=== PATIENT | female | born 1990 | race Caucasian/White ===

== ENCOUNTER 2017-01-06 14:34 | Emergency (ER) | payer OTHER ==
[~2017-01-06] VITALS: Ht 165.1 cm; Wt 103.8 kg
[2017-01-06 15:29] LABS: HEMATOCRIT 43.5 % (36.0-46.0); MCH 28.9 PG (29.0-34.0); MCHC 32.6 G/DL (30.0-36.0); MCV 88.6 FL (83-99); MEAN PLAT.VOLUME 8.9 uM^3 (9.5-12.4); PLATELET COUNT 352 K/uL (156-360); RBC DIS.WIDTH-CV 12.7 % (11.8-14.6); RBC DIS.WIDTH-SD 41.6 % (39-53); RED BLOOD COUNT 4.91 M/uL (3.80-5.20); WHITE BLOOD COUNT 11.2 K/uL (4.1-10.2)
[2017-01-06] MEDS ORDERED: PRENATAL TABLE1 EAC3 PO (15:56)
[2017-01-06 16:15] LABS: ADD MIUA? YES; BILIRUBIN NEGATIVE; BLOOD MODERATE; COLOR YELLOW ((YELLOW)); GLUCOSE (STRIP) NEGATIVE; KETONES 20; LEUKOCYTES LARGE; NITRITE NEGATIVE; PROTEIN (STRIP) 30; UROBILINOGEN 0.2 MG/DL (0.2-1.0)
[2017-01-06 16:18] LABS: BACTERIA RARE /HPF; EPITHELIAL CELLS 1+ /HPF; MUCUS NONE SEEN /LPF; RED BLOOD CELLS 15-20 /HPF (0-5); UCUL ADDED? NO; WHITE BLOOD CELLS 20-30 /HPF (0-5)
[2017-01-06] MEDS ORDERED: KEFLEX500 MG PO (18:40)
[2017-01-06] MEDS ORDERED: METOPROLOL TART50 MG PO (18:43)
[2017-01-06 19:13] VITALS: BP 159/75
== END 2017-01-06 19:14 | disposition home or self-care (01) ==
LOC: EME 14:34
DX: O20.0 Threatened abortion (principal); O16.1 Unspecified maternal hypertension, first trimester; I10 Essential (primary) hypertension
CPT/HCPCS: 76801; 81003; 84702; 85027; 86900; 86901; 99281; 99283

== ENCOUNTER 2017-07-21 07:18 | Outpatient (CLI) | payer OTHER ==
[~2017-07-21] VITALS: Ht 165.1 cm; Wt 101.2 kg
[~2017-07-21 07:18] MED LIST: KEFLEX500 MG PO; METOPROLOL TART50 MG PO; PRENATAL TABLE1 EAC3 PO
[2017-07-21 07:31] VITALS: BP 130/71
[2017-07-21 08:33] VITALS: BP 117/66
[2017-07-21 08:39] LABS: ADD MIUA? NO; BILIRUBIN NEGATIVE; BLOOD NEGATIVE; COLOR YELLOW ((YELLOW)); GLUCOSE (STRIP) NEGATIVE; KETONES 5; LEUKOCYTES NEGATIVE; NITRITE NEGATIVE; PROTEIN (STRIP) NEGATIVE; SPECIFIC GRAVITY 1.011 (1.000-1.030); UCUL ADDED? NO; UROBILINOGEN 0.2 MG/DL (0.2-1.0)
== END 2017-07-21 11:10 | disposition home or self-care (01) ==
LOC: LDRP-OP 07:18 → 2WEST 07:19
PROVIDERS: Obstetrics & Gynecology
DX: O26.893 Other specified pregnancy related conditions, third trimester (principal); Z3A.33 33 weeks gestation of pregnancy
CPT/HCPCS: 59025; 81003; 87086; G0378